=== PATIENT | female | born 1955 | race Caucasian/White ===

== ENCOUNTER → 2021-05-22 | Outpatient (CLI) | payer MEDICARE ==
--- NOTE | 2021-05-22 11:32 | XR ---
EXAMINATION TYPE: XR shoulder complete RT, 3 views DATE OF EXAM: 05/22/2021 Comparison: None Clinical History: 65-year-old female M25.511 R shoulder pain Findings: There is moderate degenerative change of the acromion clavicular joint. Prominent marginal spurring. Some inferior spurring encroaches onto the subacromial space. Some synovial calcifications are noted. There are loose bodies in the subcoracoid recess measuring 8 mm and in the axillary recess measuring 2.0 x 1.1 cm. There is severe degenerative change of the left humeral joint with [id number] abutme nt, subchondral sclerosis, and marginal spurring. No acute fracture, subluxation, or dislocation. Impression: 1. Severe, [id number] right glenohumeral joint OA with a couple loose bodies measuring up to 2.0 cm . 2. Moderate AC joint OA. Inferior spurring encroaches onto the subacromial space.
== END | disposition home or self-care (01) ==
LOC: RADXRMAIN 10:41
PROVIDERS: ATTEND Internal Medicine
DX: M19.011 Primary osteoarthritis, right shoulder (principal)

== ENCOUNTER → 2022-03-26 | Outpatient (CLI) | payer MEDICARE ==
[2022-03-26 16:05] LABS: Appearance,Urine Clear (Clear); Bilirubin,Urine Negative (Negative); Blood,Urine Negative (Negative); Color,Urine Yellow; Glucose,Urine (UA) Negative (Negative); Ketones,Urine Negative (Negative); Leukocyte Esterase,Urine Negative (Negative); Nitrite,Urine Negative (Negative); Protein,Urine Negative (Negative); Urobilinogen,Urine <2.0 mg/dL (<2.0)
[2022-03-26 17:25] LABS: INR 0.9 (<1.2)
[2022-03-26 17:26] LABS: Partial Thromboplastin Time 23.2 sec (22.0-30.0); Prothrombin Time 10.1 sec (9.0-12.0)
[2022-03-26 22:30] LABS: HCT 40.7 % (37.2-46.3); HGB 12.9 g/dL (12.0-15.0); MCH 29.2 pg (27.0-32.0); MCHC 31.7 g/dL (32.0-37.0); MCV 92.1 fL (80.0-97.0); Mean Platelet Volume 10.5 fL (9.5-12.2); NRBC Per 100 WBC 0 /100 WBCS (0.0-0.0); Platelet Count 347 X 10*3/uL (140-440); RBC 4.42 X 10*6/uL (4.10-5.20); RDW 13.5 % (11.5-14.5); WBC 12.09 X 10*3/uL (4.50-10.00)
[2022-03-26 22:52] LABS: African American GFR (CKD) 99.1 (60.0-200.0); Albumin 4.2 g/dL (3.8-4.9); Albumin/Globulin Ratio 1.42 (1.60-3.17); Anion Gap 14.3 mmol/L (10.00-18.00); BUN/Creat Ratio 15.38 Ratio (12.00-20.00); Blood Urea Nitrogen 11.2 mg/dL (9.0-27.0); Calcium 10.1 mg/dL (8.7-10.3); Carbon Dioxide 22.8 mmol/L (20.0-27.5); Non-African American GFR(CKD) 85.5 (60.0-200.0); Potassium 4.4 mmol/L (3.5-5.5); Total Bilirubin 0.3 mg/dL (0.30-1.20); Total Protein 7.2 g/dL (6.2-8.2)
== END | disposition home or self-care (01) ==
LOC: LABPAT 14:38
PROVIDERS: ATTEND Orthopaedic Surgery
DX: Z01.812 Encounter for preprocedural laboratory examination (principal); M19.011 Primary osteoarthritis, right shoulder
CPT/HCPCS: 80053; 81003; 85027; 85610; 85730; 87070

== ENCOUNTER 2022-04-14 08:58 | Day surgery (SDC) | payer MEDICARE ==
[2022-04-07 12:57] VITALS: BMI 33.6
[~2022-04-14 08:58] MED LIST: ACETAMINOPHEN TAB 500 MG TAB PO PRN; GABAPENTIN 300 MG CAP PO PRN; MELOXICAM 7.5 MG TAB PO PRN; TRANEXAMIC ACID IN NACL,ISO-OS 1,000 MG in SALINE 1 100ML.BAG IVPB PRN
[2022-04-14] MEDS ORDERED: LACTATED RINGERS 1,000 ML IV ONE ×3 (09:47→14:40)
[2022-04-14] MEDS ORDERED: ONDANSETRON 4 MG/2 ML VIAL ONE (10:18)
[2022-04-14] MEDS ORDERED: ONDANSETRON 4 MG/2 ML VIAL IVP ONE (10:24)
[2022-04-14] MEDS ORDERED: DEXAMETHASONE SOD PHOSPHATE 4 MG/ML 1 ML VIAL IVP ONE (10:24)
[2022-04-14] MEDS ORDERED: fentaNYL (PF) 50 MCG/1 ML VIAL IVP ONE (10:37)
[2022-04-14] MEDS ORDERED: MIDAZOLAM 2 MG/2 ML VIAL IVP ONE (10:37)
[2022-04-14] MEDS ORDERED: hydrOXYzine pamoate 25 MG CAP PO PRN (11:12)
[2022-04-14] MEDS ORDERED: ONDANSETRON 4 MG/2 ML VIAL IVP PRN (11:12)
[2022-04-14] MEDS ORDERED: SENNOSIDES-DOCUSATE SODIUM 1 EACH TAB PO PRN (11:12)
[2022-04-14] MEDS ORDERED: HYDROmorphone 0.5 MG/0.5 ML SYRINGE IVP PRN ×2 (11:12)
[2022-04-14] MEDS ORDERED: HYDROcodone/APAP 7.5-325MG 1 EACH TAB PO PRN ×2 (11:16)
[2022-04-14] MEDS ORDERED: ePHEDrine 50 MG/ML 1 ML VIAL ONE (11:22)
[2022-04-14] MEDS ORDERED: LIDOCAINE 2% INJ 20 MG/ML (2 ML VIAL) ONE (11:22)
[2022-04-14] MEDS ORDERED: ROPIVACAINE 5 MG/ML 30 ML VIAL ONE (11:22)
[2022-04-14] MEDS ORDERED: fentaNYL (PF) 50 MCG/ML 2 ML AMP ONE (11:22)
[2022-04-14] MEDS ORDERED: TRANEXAMIC ACID IN NACL,ISO-OS 1,000 MG/100 ML BAG ONE (11:22)
[2022-04-14] MEDS ORDERED: SUCCINYLCHOLINE CHLORIDE 200 MG/10 ML VIAL IV ONE (11:22)
[2022-04-14] MEDS ORDERED: LIDOCAINE 4% LTA KIT (4 ML) TOPICAL ONE (11:22)
[2022-04-14] MEDS ORDERED: PROPOFOL 10 MG/ML 20 ML VIAL IV ONE (11:22)
[2022-04-14] MEDS ORDERED: MIDAZOLAM 2 MG/2 ML VIAL ONE (11:22)
[2022-04-14] MEDS ORDERED: ROCURONIUM 10 MG/ML (5 ML VIAL) IV ONE (11:22)
[2022-04-14] MEDS ORDERED: NEOSTIGMINE 1 MG/ML 10 ML VIAL ONE (11:22)
[2022-04-14] MEDS ORDERED: GLYCOPYRROLATE 0.2 MG/ML 2 ML VIAL ONE (11:22)
[2022-04-14] MEDS ORDERED: ceFAZolin 1,000 MG in SODIUM CHLORIDE 0.9% 1,000 ML IRRIGATION ONE (11:40)
--- NOTE | 2022-04-14 11:58 | P.ANPRN ---
Procedure Note - Anesthesia - Nerve Block Performed Right Interscalene Single Time Out Performed: Yes (1036) Date of Procedure: 04/14/22 Procedure Start Time: 10:37 Procedure Stop Time: 10:43 Location of Patient: PreOp Indication: Acute Post-Operative Pain, Requested by Surgeon Specifically requested for management of pain by DrSrikanth: Chau Hauser Sedation Type: Sedate with meaningful contact maintained Preparation: Sterile Prep Position: Supine Catheter: None Needle Types: Pajunk Needle Gauge: 21 Ultrasound used to visualize needle placement: Yes Ultrasound used to observe medication spread: Yes Injectate: 0.5% Ropivacaine (see comment for volume) (30cc) Blood Aspirated: No Pain Paresthesia on Injection Noted: No Resistance on Injection: Normal Image Stored and Saved: Yes Events: Uneventful and Well Tolerated
--- NOTE | 2022-04-14 12:41 | P.OP ---
Date of Procedure: 04/14/22 Preoperative Diagnosis: Severe osteoarthritis right shoulder with chronic rotator cuff tear Postoperative Diagnosis: Severe osteoarthritis right shoulder with chronic rotator cuff tear Procedure(s) Performed: Reverse total shoulder arthroplasty right shoulder Implants: Biomet comprehensive shoulder system, mini humeral stem, 13 mm porous-coated. Biomet comprehensive reverse shoulder system, humeral bearing, 36 mm, standard Biomet comprehensive reverse shoulder system, mini humeral tray, 40 mm, +0, standard Biomet comprehensive reverse shoulder, Glenosphere mini baseplate, 25 mm Biomet comprehensive reverse shoulder, central screw, 6.5 mm x 25 mm Biomet comprehensive reverse shoulder, fixed locking screw, 4.75 x 25 mm, 15 mm, 20 mm, 25 mm. Biomet comprehensive reverse shoulder glenosphere, 36 mm, standard All components were press-fit. Articulation is metal on polyethylene.Articulation is metal on polyethylene. Anesthesia: GETA Surgeon: Chau Hauser 411 Directory Assistance Operator #1: Martha Moser Estimated Blood Loss (ml): 100 Pathology: other (Humeral head) Condition: stable Disposition: PACU Indications for Procedure: This is a patient that presented to my office with severe pain in the shoulder. X-rays demonstrated severe osteoarthritis of the glenohumeral joint of her shoulder. After failure of conservative treatment, we discussed the surgical and nonsurgical treatment options at length. The patient wishes to proceed with a reverse total shoulder arthroplasty. Patient is aware of the complications of the procedure which include but are not limited to infection, hardware failure, persistent pain, dislocation, and nerve injury. Informed consent was obtained. Operative Findings: The operative findings are consistent with severe osteoarthritis of the right shoulder with chronic rotator cuff tear Description of Procedure: The patient was seen in the preoperative area, consent was reviewed, and operative site was marked with a skin marker. Patient was then brought to the operating room and given preoperative antibiotics intravenously. Patient was also given 1 g of Tranexamic acid intravenously. A general anesthetic was administered by the anesthesia department. A Hirsch catheter was placed by the nursing staff. The patient was then placed in a beachchair position with the bony prominences well-padded and the head secured. The shoulder was then prepped and draped in the usual sterile fashion. A universal timeout was then performed, which confirmed the patient's name, surgical site, ALLERGIES, and consent. A standard deltopectoral approach was performed. The skin and subcutaneous tissue was sharply dissected down to the deltoid fascia. The cephalic vein was then identified and retracted medially. The deltopectoral interval was then utilized to expose the subscapularis tendon. A retractor was then placed under the coracobrachialis tendon retracted medially, and the deltoid. The axillary nerve is palpated and protected throughout the procedure. The subscapularis tendon was then released and retracted medially. The humeral head was then exposed easily. The rotator cuff tendon was found to be completely torn and retracted. After the humeral head was exposed, osteophytes were removed with a Ronguer. Next the humeral stem was prepared. A starter reamer was then placed through the humeral head along the axis of the humeral shaft just lateral to the articular surface and just medial to the rotator cuff attachment. Sequential reaming was performed to the appropriate size reamer was inserted to the #b etween the 3 and 4 on the reamer. Next the intramedullary resection guide was placed on the reamer shaft. It was placed to the appropriate resection depth and angle of 30 of retroversion. Resection guide block was then secured with Steinmann pins. The proximal humerus was then resected. The block was then removed and the humerus was then broached sequentially to the same size as the reamer. After the broaches fully seated, the broach handle was removed and a broach cover was placed protect the humerus while the glenoid was prepared. Next attention was directed to the glenoid. The appropriate retractors were placed around the glenoid and any remaining soft tissues was removed from around the glenoid. After the glenoid was adequately exposed, the threaded glenoid guide was placed onto the glenoid and a 3.2 mm Steinmann pin was inserted in the glenoid at the desired angle and position, ensuring the pin engaged medial cortical wall. Next, the cannulated baseplate reamer was placed over the top of the Steinmann pin. The glenoid was then reamed to the appropriate depth. The glenoid reamer was then removed, leaving the Steinmann pin. The glenoid Kaushal plate implant was placed on the end of the cannulated baseplate impactor. The baseplate was then impacted fully into the glenoid. Next the 6.5 mm central screw was then placed which afforded excellent fixation. The 4 peripheral locking screws were then drilled measured and placed. Next the appropriate glenosphere was opened and impacted into the glenoid baseplate. Attention was then redirected to the humerus. Next a trial humeral tray was placed in the shoulder was reduced. Shoulder was taken through a full range of motion and found to be stable. The shoulder was then gently dislocated, and the trial humerus and humeral tray were removed. The final humeral stem was impacted in the final humeral tray was impacted as well. Shoulder was then relocated. Again the shoulder was taken through a range of motion and found to have no instability. Shoulder was then irrigated with pulsatile lavage. The shoulder was then irrigated with Irrisept solution. A second dose of 1 g of Tranexamic acid was given. The subscapularis was then repaired with #1 Vicryl. The deltopectoral interval was then closed with #1 Vicryl as well. The subcutaneous tissues were closed with 3-0 Vicryl then 3-0 Stratafix. Exofin skin glue was placed on the skin. A sterile dressing was then applied, the patient was transported to the recovery room in an arm sling in stable condition. The cardiology physician assistant DORON Acuna was required due the complexity of surgery and the need for a skilled surgical consultant.
[2022-04-14] MEDS ORDERED: HYDROmorphone 0.5 MG/0.5 ML SYRINGE IVP ONE (14:12)
--- NOTE | 2022-04-14 15:08 | XR ---
EXAMINATION TYPE: XR shoulder limited RT DATE OF EXAM: 04/14/2022 CLINICAL HISTORY: Postop right shoulder. Pain and osteoarthritis. TECHNIQUE: Single portable view right shoulder is obtained. COMPARISON: Prior right shoulder x-ray May 22, 2021. FINDINGS: Metallic hardware from reversed total right shoulder arthroplasty is satisfactory in positi on. [place] osseous structures are demineralized. Overlying subcutaneous air and soft tissue swelling is noted. IMPRESSION: As above.
[2022-04-14] MEDS: SODIUM CHLORIDE 0.9% 1,000 ML IV SCH (15:24)
[2022-04-14] MEDS: HYDROmorphone 0.5 MG/0.5 ML SYRINGE IVP PRN ×3 (17:07→23:06)
--- NOTE | 2022-04-14 18:18 | P.CONS ---
History of Present Illness - Reason for Consult Consult date: 04/14/22 - History of Present Illness Patient is a 66-year-old female with PMH of GERD, depression and osteoarthritis that presents to [facility] for elective surgery. She underwent right total shoulder arthroplasty on 04/14/2022. She is admitted overnight for observation. [facility] is being consulted for medical management of this patient. Patient reports well controlled pain in her right shoulder. Urinating freely. No bowel movement, but passing gas. Patient denies headache, lower extremity edema, nausea or vomiting, fever or chills, cough, chest pain, shortness breath, palpitations, changes in urination or bowel habits. No changes in appetite or weight. She denies any dizziness, numbness/weakness/tingling of the extremities. Pertinent positives and negatives as discussed in HPI, a complete review of systems was performed and all other systems are negative. General: non toxic, no distress, appears at stated age Derm: warm, dry Head: atraumatic, normocephalic, symmetric Eyes: EOMI, no lid lag, anicteric sclera Mouth: no lip lesion, mucus membranes moist Cardiovascular: S1S2 reg, no murmur, positive posterior tibial pulse bilateral, Lungs: CTA bilateral, no rhonchi, no rales , no accessory muscle use Ext: no gross muscle atrophy, no edema, no contractures Neuro: no focal neuro deficits Psych: Alert, oriented, appropriate affect #GERD Restart omeprazole. #Depression Restart Prozac. #Obesity Patient would benefit from a structured weight loss program. #Status post right total shoulder arthroplasty Management as per orthopedic surgery. PT and OT consulted. DVT prophylaxis: SCDs Discussed with: Patient Anticipated discharge: 1-[address]: Home A total of 20 minutes was spent on the care of this complex patient more than 50% of the time was spent in counseling and care coordination. Past Medical History Past Medical History: GERD/Reflux, Hyperlipidemia, Osteoarthritis (OA) Additional Past Medical History / Comment(s): HX DIVERTICULITIS, PAST HX HEP C History of Any Multi-Drug Resistant Organisms: None Reported Past Surgical History: Appendectomy, Bowel Resection, Section, Joint Replacement, Tonsillectomy Additional Past Surgical History / Comment(s): BOWEL RESECTION WITH COLOSTOMY- THEN REVERSAL, COLONOSCOPY, rt shoulder replacement 04/07 Past Anesthesia/Blood Transfusion Reactions: No Reported Reaction Past Psychological History: Anxiety, Depression Smoking Status: Former smoker Past Alcohol Use History: None Reported Additional Past Alcohol Use History / Comment(s): QUIT SMOKING 2006 Past Drug Use History: Marijuana Additional Drug Use History / Comment(s): USES MARIJUANA DAILY-INSTRUCTED TO REFRAIN FROM USE FOR AT LEAST 24 HOURS PRIOR TO PROCEDURE - Past Family History Father Family Medical History: Cancer Mother Family Medical History: CVA/TIA Additional Family Medical History / Comment(s): TIA Medications and Allergies Home Medications Medication Instructions Recorded Confirmed Type FLUoxetine HCL [PROzac] 20 mg PO BID 04/13/22 04/14/22 History HYDROcodone/APAP 10-325MG [[place] 1 tab PO Q4-6H PRN 04/13/22 04/14/22 History 10-325] Multivitamin/Iron/Folic Acid 1 each PO DAILY 04/13/22 04/14/22 History [Centrum Women Tablet] Naproxen Sodium [Naproxen Sodium 500 mg PO BID 04/13/22 04/14/22 History ER] Omeprazole 20 mg PO DAILY 04/13/22 04/14/22 History hydrOXYzine HCL 10 mg PO BID 04/13/22 04/14/22 History HYDROcodone/APAP 7.5-325MG [[place] 1 - 2 tab PO Q6H PRN #32 tab 04/14/22 Rx 7.5-325] Sennosides [Senokot] 2 tab PO DAILY PRN #60 tablet 04/14/22 Rx Allergies Allergy/AdvReac Type Severity Reaction Status Date / Time acetaminophen [From Percocet] AdvReac Hallucinati Verified 04/14/22 09:43 ons codeine AdvReac Nausea & Verified 04/14/22 09:43 Vomiting oxycodone [From Percocet] AdvReac Hallucinati Verified 04/14/22 09:43 ons propoxyphene [From Darvon] AdvReac Nausea & Verified 04/14/22 09:43 Vomiting Physical Exam Vitals: Vital Signs Temp Pulse Resp BP Pulse Ox 04/14/22 16:09 98.0 F 69 17 127/75 93 L 04/14/22 15:00 79 16 131/66 98 04/14/22 14:00 69 16 132/77 97 04/14/22 13:45 71 16 135/70 97 04/14/22 13:29 68 16 132/68 98 04/14/22 13:14 67 16 143/71 98 04/14/22 12:59 97 F L 79 16 148/68 96 04/14/22 10:50 72 16 136/64 99 04/14/22 09:40 97.4 F L 73 16 151/72 97 Intake and Output 04/14/22 04/14/22 04/14/22 06:59 14:59 22:59 Intake Total 1051 240 Output Total 100 Balance 951 240 Intake: IV 1051 100 Intake, IV Titration 140 Amount Sodium Chloride 0.9% 1, 140 000 ml @ 70 mls/hr IV . [id number] [facility] Rx#:[id number] Output: Estimated Blood Loss 100 Other: Weight 88.4 kg 88.4 kg
[2022-04-14] MEDS: hydrOXYzine HCL 10 MG TAB PO SCH (20:07)
[2022-04-14] MEDS: FLUoxetine HCL 20 MG CAP PO SCH (20:08)
[2022-04-15] MEDS: HYDROmorphone 0.5 MG/0.5 ML SYRINGE IVP PRN ×3 (02:10→09:10)
[2022-04-15] MEDS: SODIUM CHLORIDE 0.9% 1,000 ML IV SCH (06:03)
[2022-04-15] MEDS ORDERED: PANTOPRAZOLE 40 MG TABLET PO SCH (07:30)
--- NOTE | 2022-04-15 07:52 | P.DS ---
Providers Expected date of discharge: 04/15/22 Attending physician: Chau Hauser Consults: 04/14/22 11:16 Consult Physician Routine Consulting Provider: Ericka Garcia Consult Reason/Comments: medical management Do you want consulting provider notified?: Yes Primary care physician: Stated None - Discharge Diagnosis(es) (1) Primary osteoarthritis of right shoulder Current Visit: Yes Status: Acute (2) Status post total replacement of right shoulder Current Visit: Yes Status: Acute Hospital Course: This is a 66-year-old female who has history of severe degenerative arthritis of the right shoulder and presented to discuss surgical options. After discussion and consideration the patient elects to proceed with total shoulder arthroplasty. The pt is seen preoperatively by their family physician and cleared for surgery. The patient is admitted to [facility] on 04/14/2022 for total right shoulder arthroplasty. She is doing well postoperatively. Vital signs and hemoglobin are stable. The pt is able to get up out of bed independently and is ambulating without assistance. Pain is well controlled. Patient is discharged to home on postoperative day #1 in good condition. Please see med rec for accurate list of home medications. Patient Condition at Discharge: Good Plan - Discharge Summary Discharge Rx Participant: Yes New Discharge Prescriptions: New HYDROcodone/APAP 7.5-325MG [[place] 7.5-325] 1 - 2 tab PO Q6H PRN #32 tab PRN Reason: Pain Sennosides [Senokot] 2 tab PO DAILY PRN #60 tablet PRN Reason: Constipation Ketorolac [Toradol] 10 mg PO Q6HR PRN #20 tab PRN Reason: Pain No Action hydrOXYzine HCL 10 mg PO BID Multivitamin/Iron/Folic Acid [Centrum Women Tablet] 1 each PO DAILY Naproxen Sodium [Naproxen Sodium ER] 500 mg PO BID FLUoxetine HCL [PROzac] 20 mg PO BID HYDROcodone/APAP 10-325MG [[place] 10-325] 1 tab PO Q4-6H PRN PRN Reason: Pain Omeprazole 20 mg PO DAILY Discharge Medication List FLUoxetine HCL [PROzac] 20 mg PO BID 04/13/22 [History] HYDROcodone/APAP 10-325MG [[place] 10-325] 1 tab PO Q4-6H PRN 04/13/22 [History] Multivitamin/Iron/Folic Acid [Centrum Women Tablet] 1 each PO DAILY 04/13/22 [History] Naproxen Sodium [Naproxen Sodium ER] 500 mg PO BID 04/13/22 [History] Omeprazole 20 mg PO DAILY 04/13/22 [History] hydrOXYzine HCL 10 mg PO BID 04/13/22 [History] HYDROcodone/APAP 7.5-325MG [[place] 7.5-325] 1 - 2 tab PO Q6H PRN #32 tab 04/14/22 [Rx] Sennosides [Senokot] 2 tab PO DAILY PRN #60 tablet 04/14/22 [Rx] Ketorolac [Toradol] 10 mg PO Q6HR PRN #20 tab 04/15/22 [Rx] Follow up Appointment(s)/Referral(s): Chau Hauser DO [Doctor of Osteopathic Medicine] - 2 Weeks Activity/Diet/Wound Care/Special Instructions: Maintain sling as needed for comfort. Dressing may be removed in 7 days. Then change dressing twice daily until follow up. May shower with initial dressing intact and after removal. If dressing become saturated, please remove. Avoid heavy lifting. May start gentle range of motion of the shoulder as tolerated. Please follow-up with [facility] and call with any questions or concerns, . Discharge Disposition: HOME SELF-CARE
[2022-04-15] MEDS: FLUoxetine HCL 20 MG CAP PO SCH (09:11)
[2022-04-15] MEDS: hydrOXYzine HCL 10 MG TAB PO SCH (09:11)
[2022-04-15 09:34] VITALS: BP 114/69; PULSE 93; RESP 17; TEMP 98.5
[2022-04-15] MEDS ORDERED: KETOROLAC 15 MG/ML 1 ML VIAL IVP STA (10:58)
--- NOTE | 2022-04-15 14:32 | P.PN ---
Subjective Progress Note Date: 04/15/22 Patient was seen and examined. No acute events overnight. Patient reports right shoulder pain, 6/10 in severity. States she can manage the pain at home. General: non toxic, no distress, appears at stated age Derm: warm, dry Head: atraumatic, normocephalic, symmetric Eyes: EOMI, no lid lag, anicteric sclera Mouth: no lip lesion, mucus membranes moist Cardiovascular: S1S2 reg, no murmur Lungs: CTA bilateral, no rhonchi, no rales , no accessory muscle use Ext: no gross muscle atrophy, no edema, no contractures, R arm in a sling Neuro: no focal neuro deficits Psych: Alert, oriented, appropriate affect #GERD Restart omeprazole. #Depression Restart Prozac. #Obesity Patient would benefit from a structured weight loss program. #Status post right total shoulder arthroplasty Management as per orthopedic surgery. PT and OT consulted. Patient is medically cleared for discharge. Objective - Vital Signs Vital signs: Vital Signs Temp 98.5 F 04/15/22 08:00 Pulse 93 04/15/22 08:00 Resp 17 04/15/22 08:00 BP 114/69 04/15/22 08:00 Pulse Ox 94 L 04/15/22 08:00 FiO2 Intake & Output 04/14/22 04/15/22 04/15/22 18:59 06:59 18:59 Intake Total 1291 Output Total 100 Balance 1191 Weight 88.4 kg Intake: IV 1151 Intake, IV Titration 140 Amount Sodium Chloride 0.9% 1, 140 000 ml @ 70 mls/hr IV . [id number] [facility] Rx#:[id number] Output: Estimated Blood Loss 100 Other: # Voids 2
== END 2022-04-15 12:38 | disposition home or self-care (01) ==
LOC: OR 08:58 → 4SSUR 12:59 → OR 04-15 12:38
PROVIDERS: ATTEND Orthopaedic Surgery
DX: M75.101 Unspecified rotator cuff tear or rupture of right shoulder, not specified as traumatic (principal); M19.011 Primary osteoarthritis, right shoulder; G89.18 Other acute postprocedural pain; E78.5 Hyperlipidemia, unspecified; F32.A Depression, unspecified; Z97.3 Presence of spectacles and contact lenses; Z82.49 Family history of ischemic heart disease and other diseases of the circulatory system
CPT/HCPCS: 64415; 76942; 73020; 23472; C1776; J2250; J0330; J1100; J2710; J0690 ×3; J2405; J3010 ×2; J2795; J1885; J2704; J1170 ×2; J2001

== ENCOUNTER → 2022-08-18 | Outpatient (CLI) | payer MEDICARE, OTHER ==
[2022-08-18 15:20] LABS: Partial Thromboplastin Time 22.6 sec (22.0-30.0)
[2022-08-18 16:01] LABS: HCT 42.6 % (34.0-46.0); HGB 14.2 gm/dL (11.4-16.0); MCH 29.2 pg (25.0-35.0); MCHC 33.3 g/dL (31.0-37.0); MCV 87.6 fL (80.0-100.0); Mean Platelet Volume 8.3; Platelet Count 321 k/uL (150-450); RBC 4.87 m/uL (3.80-5.40); WBC 10.3 k/uL (3.8-10.6)
[2022-08-18 19:50] LABS: African American GFR (CKD) 88.4 (60.0-200.0); Albumin 4.3 g/dL (3.8-4.9); Albumin/Globulin Ratio 1.34 (1.60-3.17); Anion Gap 10.7 mmol/L (10.00-18.00); Blood Urea Nitrogen 18.4 mg/dL (9.0-27.0); Calcium 10.2 mg/dL (8.7-10.3); Carbon Dioxide 24.3 mmol/L (20.0-27.5); Globulin 3.2 g/dL (1.6-3.3); Non-African American GFR(CKD) 76.3 (60.0-200.0); Potassium 4.7 mmol/L (3.5-5.5); Total Bilirubin 0.3 mg/dL (0.30-1.20); Total Protein 7.5 g/dL (6.2-8.2)
[2022-08-18 22:24] LABS: INR 0.9 (<1.2); Prothrombin Time 10.2 sec (9.0-12.0)
== END | disposition home or self-care (01) ==
LOC: LABPAT 14:18
PROVIDERS: ATTEND Orthopaedic Surgery
DX: Z01.818 Encounter for other preprocedural examination (principal); M19.012 Primary osteoarthritis, left shoulder
CPT/HCPCS: 80053; 85027; 85610; 85730; 87070; 87086

== ENCOUNTER 2022-08-31 07:09 | Observation (INO) | payer MEDICARE, OTHER ==
[2022-08-25 10:38] VITALS: BMI 34.3
[2022-08-31] MEDS ORDERED: MIDAZOLAM 2 MG/2 ML VIAL IV PRN (07:29)
[2022-08-31] MEDS ORDERED: DEXAMETHASONE SOD PHOSPHATE 4 MG/ML 1 ML VIAL IV ONE (07:29)
[2022-08-31] MEDS ORDERED: ONDANSETRON 4 MG/2 ML VIAL IVP ONE (07:29)
[2022-08-31] MEDS: LACTATED RINGERS 1,000 ML IV SCH (08:25)
[2022-08-31] MEDS: fentaNYL (PF) 50 MCG/ML 2 ML AMP IV PRN ×2 (08:34→11:00)
[2022-08-31] MEDS ORDERED: SENNOSIDES-DOCUSATE SODIUM 1 EACH TAB PO PRN (08:52)
[2022-08-31] MEDS ORDERED: ONDANSETRON 4 MG/2 ML VIAL IVP PRN (08:52)
[2022-08-31] MEDS ORDERED: HYDROmorphone 0.5 MG/0.5 ML SYRINGE IVP PRN ×2 (08:52)
[2022-08-31] MEDS ORDERED: HYDROcodone/APAP 7.5-325MG 1 EACH TAB PO PRN ×2 (08:55)
[2022-08-31] MEDS ORDERED: TRANEXAMIC ACID IN NACL,ISO-OS 1,000 MG/100 ML BAG ONE (09:04)
[2022-08-31] MEDS ORDERED: SUCCINYLCHOLINE CHLORIDE 200 MG/10 ML VIAL IV ONE (09:04)
[2022-08-31] MEDS ORDERED: LIDOCAINE 2% INJ 20 MG/ML (2 ML VIAL) ONE (09:04)
[2022-08-31] MEDS ORDERED: PROPOFOL 10 MG/ML 20 ML VIAL IV ONE (09:04)
[2022-08-31] MEDS ORDERED: LIDOCAINE 4% LTA KIT (4 ML) TOPICAL ONE (09:04)
[2022-08-31] MEDS ORDERED: MIDAZOLAM 2 MG/2 ML VIAL ONE (09:04)
[2022-08-31] MEDS ORDERED: fentaNYL (PF) 50 MCG/ML 2 ML AMP ONE (09:04)
[2022-08-31] MEDS ORDERED: HYDROmorphone (PF) 1 MG/ML ONE (09:04)
[2022-08-31] MEDS ORDERED: PHENYLEPHRINE-0.9% NACL SYG 1,000 MCG/10 ML SYRINGE ONE (09:04)
[2022-08-31] MEDS ORDERED: ROPIVACAINE 5 MG/ML 30 ML VIAL ONE (09:04)
[2022-08-31] MEDS ORDERED: ceFAZolin 1,000 MG in SODIUM CHLORIDE 0.9% 1,000 ML IRRIGATION ONE (09:08)
--- NOTE | 2022-08-31 09:45 | P.ANPRN ---
Procedure Note - Anesthesia - Nerve Block Performed Left Interscalene Single Time Out Performed: Yes (0833) Date of Procedure: 08/31/22 Procedure Start Time: 08:34 Procedure Stop Time: 08:38 Location of Patient: PreOp Indication: Acute Post-Operative Pain, Requested by Surgeon Specifically requested for management of pain by DrSrikanth: Chau Hauser Sedation Type: Sedate with meaningful contact maintained Preparation: Sterile Prep Position: Supine Catheter: None Needle Types: Pajunk Needle Gauge: 21 Ultrasound used to visualize needle placement: Yes Ultrasound used to observe medication spread: Yes Injectate: 0.5% Ropivacaine (see comment for volume) (30cc) Blood Aspirated: No Pain Paresthesia on Injection Noted: No Resistance on Injection: Normal Image Stored and Saved: Yes Events: Uneventful and Well Tolerated
[2022-08-31] MEDS ORDERED: LACTATED RINGERS 1,000 ML IV ONE (10:17)
--- NOTE | 2022-08-31 10:18 | P.OP ---
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 Biomet comprehensive reverse shoulder system, humeral bearing, 36 mm, standard Biomet comprehensive reverse shoulder system, mini humeral tray, 40 mm, +0, standard Biomet comprehensive reverse shoulder, Glenosphere mini baseplate, 25 mm Biomet comprehensive reverse shoulder, central screw, 6.5 mm x 30 mm Biomet comprehensive reverse shoulder, fixed locking screw, 4.75 x 20 mm, 15 mm, 15 mm, 20 mm. Biomet comprehensive reverse shoulder glenosphere, 36 mm, standard All components were press-fit. Articulation is metal on polyethylene.Articulation is metal on polyethylene. Anesthesia: GETA Surgeon: Chau Hauser Alarm Signaler #1: Martha Moser Estimated Blood Loss (ml): 200 Pathology: other (Humeral head) Condition: stable Disposition: PACU Indications for Procedure: This is a patient that presented to my office with severe pain in the shoulder. X-rays demonstrated severe osteoarthritis of the glenohumeral joint of her shoulder. After failure of conservative treatment, we discussed the surgical and nonsurgical treatment options at length. The patient wishes to proceed with a reverse total shoulder arthroplasty. Patient is aware of the complications of the procedure which include but are not limited to infection, hardware failure, persistent pain, dislocation, and nerve injury. Informed consent was obtained. Operative Findings: Operative findings are consistent with severe osteoarthritis of the left shoulder with chronic rotator cuff tear Description of Procedure: The patient was seen in the preoperative area, consent was reviewed, and operative site was marked with a skin marker. Patient was then brought to the operating room and given preoperative antibiotics intravenously. Patient was also given 1 g of Tranexamic acid intravenously. A general anesthetic was administered by the anesthesia department. The patient was then placed in a beach chair position with the bony prominences well-padded and the head secured. The shoulder was then prepped and draped in the usual sterile fashion. A universal timeout was then performed, which confirmed the patient's name, surgical site, ALLERGIES, and consent. A standard deltopectoral approach was performed. The skin and subcutaneous tissue was sharply dissected down to the deltoid fascia. The cephalic vein was then identified and retracted medially. The deltopectoral interval was then utilized to expose the subscapularis tendon. A retractor was then placed under the coracobrachialis tendon retracted medially, and the deltoid. The axillary nerve is palpated and protected throughout the procedure. The subscapularis tendon was then released and retracted medially. The humeral head was then exposed easily. The rotator cuff tendon was found to be completely torn and retracted. After the humeral head was exposed, osteophytes were removed with a Ronguer. Next the humeral stem was prepared. A starter reamer was then placed through the humeral head along the axis of the humeral shaft just lateral to the articular surface and just medial to the rotator cuff attachment. Sequential reaming was performed to the appropriate size reamer was inserted to the #between the 3 and 4 on the reamer. Next the intramedullary resection guide was placed on the reamer shaft. It was placed to the appropriate resection depth and angle of 30 of retroversion. Resection guide block was then secured with Steinmann pins. The proximal humerus was then resected. The block was then removed and the humerus was then broached sequentially to the same size as the reamer. After the broaches fully seated, the broach handle was removed and a broach cover was placed protect the humerus while the glenoid was prepared. Next attention was directed to the glenoid. The appropriate retractors were placed around the glenoid and any remaining soft tissues was removed from around the glenoid. After the glenoid was adequately exposed, the threaded glenoid guide was placed onto the glenoid and a 3.2 mm Steinmann pin was inserted in the glenoid at the desired angle and position, ensuring the pin engaged medial cortical wall. Next, the cannulated baseplate reamer was placed over the top of the Steinmann pin. The glenoid was then reamed to the appropriate depth. The glenoid reamer was then removed, leaving the Steinmann pin. The glenoid Kaushal plate implant was placed on the end of the cannulated baseplate impactor. The baseplate was then impacted fully into the glenoid. Next the 6.5 mm central screw was then placed which afforded excellent fixation. The 4 peripheral locking screws were then drilled measured and placed. Next the appropriate glenosphere was opened and impacted into the glenoid baseplate. Attention was then redirected to the humerus. Next a trial humeral tray was placed in the shoulder was reduced. Shoulder was taken through a full range of motion and found to be stable. The shoulder was then gently dislocated, and the trial humerus and humeral tray were removed. The final humeral stem was impacted in the final humeral tray was impacted as well. Shoulder was then relocated. Again the shoulder was taken through a range of motion and found to have no instability. Shoulder was then irrigated with pulsatile lavage. The shoulder was then irrigated with Irrisept solution. A second dose of 1 g of Tranexamic acid was given. The subscapularis was then repaired with #1 Vicryl. The deltopectoral interval was then closed with #1 Vicryl as well. The subcutaneous tissues were closed with 3-0 Vicryl then 3-0 stratafix. Exofin glue was placed on the skin. A sterile dressing was then applied, the patient was transported to the recovery room in an arm sling in stable condition. The operator/assistant foreman DORON Acuna was required due the complexity of surgery and the need for a skilled appeals assistant.
[2022-08-31] MEDS ORDERED: HYDROmorphone 0.5 MG/0.5 ML SYRINGE IVP ONE (10:59)
[2022-08-31] MEDS: HYDROmorphone 0.5 MG/0.5 ML SYRINGE IVP PRN ×3 (12:45→20:08)
[2022-08-31] MEDS: BENZOCAINE/MENTHOL LOZENG 1 EACH LOZENGE MUCOUS MEM PRN ×2 (15:07→20:27)
--- NOTE | 2022-08-31 15:08 | XR ---
EXAMINATION TYPE: XR shoulder limited LT DATE OF EXAM: 08/31/2022 COMPARISON: NONE HISTORY: Postop left shoulder TECHNIQUE: Single portable view of the left shoulder is obtained. FINDINGS: Glenohumeral prosthesis is in place and well seated. Normal postoperative alignment. Increa sed density left lung base could reflect discoid atelectasis. Correlate with chest radiograph. IMPRESSION: As above
--- NOTE | 2022-08-31 19:10 | P.CONS ---
History of Present Illness - Reason for Consult Consult date: 08/31/22 Medical Management Requesting physician: Chau Hauser - History of Present Illness History of Presenting Illness: Patient is a very pleasant 66-year-old female with a past medical history of anxiety, depression, fibromyalgia, hyperlipidemia, GERD, and osteoarthritis. Patient is currently admitted under orthopedic surgery team status post elective reverse total Left shoulder arthroplasty secondary to severe osteoarthritis of left shoulder with chronic rotator cuff tear. We have been consulted for medical management throughout patient's hospitalization. Patient seen and fully evaluated at bedside. Patient reports currently experiencing mild to moderate postoperative pain. She denies having any other complaints including headache, lightheadedness, dizziness, chest pain, palpitations, shortness of breath, cough or congestion, nausea or vomiting, or experiencing any focal numbness in her extremities. Left arm in sling, movement and sensation intact. Review of systems: Pertinent positives and negatives as discussed in HPI, a complete review of systems was performed and all other systems are negative. Physical exam: Vital signs reviewed and stable. General: Nontoxic, no distress and appears stated age. Derm: Skin warm and dry, normal coloration for ethnicity. Head: Atraumatic, normocephalic and symmetric. Eyes: EOMs intact, no lid lag, and anicteric sclera Mouth: no lip lesions, mucus membranes moist Cardiovascular: regular rate and rhythm with normal S1S2, no murmur, positive posterior tibial pulses bilaterally, and cap refill < 2 seconds. Lungs: Respirations even, regular, and unlabored on room air. Lungs CTA bilaterally, no rhonchi, no rales, no wheezing, and no accessory muscle usage. Abdominal: soft, nontender to palpation, no guarding, no appreciable organomegaly Ext: Movement and sensation intact. No gross muscle atrophy, no edema, no contractures. Neuro: Speech clear, face symmetrical and CN II-XII grossly intact with no noted focal neuro deficits Psych: Alert and oriented to person, place, time, and situation. Appropriate and pleasant affect. Assessment and Plan of Care: Status post left total shoulder arthroplasty -DVT prophylaxis, pain management, and PT/OT per primary admitting orthopedic surgery team. Anxiety and depression Continue daily medication regimen with fluoxetine 20 mg twice daily and hydroxy zine 10 mg twice daily. GERD Continue daily medication regimen with omeprazole 20 mg daily. Thank you for allowing us to participate in the care of this pleasant patient. Do not hesitate to contact us with questions. Someone can be reached from the [facility] hospitalist group all hours of the day at [phone] or via perfect serve. Patient was seen independently by Nurse Practitioner. This document was prepared using [employer] dictation software. Please allow for errors in career placement services counselor while rare they do occur. Past Medical History Past Medical History: Fibromyalgia, GERD/Reflux, Hyperlipidemia, Liver Disease, Osteoarthritis (OA) Additional Past Medical History / Comment(s): HX DIVERTICULITIS, PAST HX HEPATITIS C. History of Any Multi-Drug Resistant Organisms: None Reported Past Surgical History: Appendectomy, Bowel Resection, Section, Joint Replacement, Tonsillectomy Additional Past Surgical History / Comment(s): BOWEL RESECTION WITH COLOSTOMY- THEN REVERSAL, COLONOSCOPY, right shoulder replacement 04/07. Past Anesthesia/Blood Transfusion Reactions: No Reported Reaction Past Psychological History: Anxiety, Depression Smoking Status: Former smoker Past Alcohol Use History: None Reported Additional Past Alcohol Use History / Comment(s): QUIT SMOKING IN 2006. Past Drug Use History: Marijuana Additional Drug Use History / Comment(s): USES MARIJUANA DAILY-INSTRUCTED TO REFRAIN FROM USE FOR AT LEAST 24 HOURS PRIOR TO PROCEDURE. - Past Family History Father Family Medical History: Cancer Mother Family Medical History: CVA/TIA Additional Family Medical History / Comment(s): TIA. Medications and Allergies Home Medications Medication Instructions Recorded Confirmed Type FLUoxetine HCL [PROzac] 20 mg PO BID 04/13/22 08/25/22 History Multivitamin/Iron/Folic Acid 1 each PO DAILY 04/13/22 08/25/22 History [Centrum Women Tablet] Omeprazole 20 mg PO DAILY 04/13/22 08/25/22 History hydrOXYzine HCL 10 mg PO BID 04/13/22 08/25/22 History HYDROcodone/APAP 10-325MG [[place] 1 tab PO Q4-6H PRN 08/25/22 08/25/22 History 10-325] Sennosides [Senokot] 2 tab PO DAILY PRN #60 tablet 08/31/22 Rx Allergies Allergy/AdvReac Type Severity Reaction Status Date / Time acetaminophen [From Percocet] AdvReac Hallucinati Verified 08/31/22 07:39 ons codeine AdvReac Nausea & Verified 08/31/22 07:39 Vomiting oxycodone [From Percocet] AdvReac Hallucinati Verified 08/31/22 07:39 ons propoxyphene [From Darvon] AdvReac Nausea & Verified 08/31/22 07:39 Vomiting Physical Exam Vitals: Vital Signs Temp Pulse Pulse Resp BP Pulse Ox 08/31/22 13:48 97.6 F 77 17 116/66 95 08/31/22 11:48 97.4 F L 74 16 136/67 99 08/31/22 11:26 69 16 130/66 95 08/31/22 11:05 64 16 131/60 97 08/31/22 10:50 65 16 103/56 100 08/31/22 10:35 97.1 F L 77 16 125/64 97 08/31/22 08:39 71 16 130/69 99 08/31/22 08:30 63 16 132/67 98 08/31/22 07:56 96.8 F L 67 16 133/60 96 Intake and Output 08/30/22 08/31/22 08/31/22 22:59 06:59 14:59 Intake Total 2301 Output Total 200 Balance 2101 Intake: IV 2301 Output: Estimated Blood Loss 200 Other: Weight 87.8 kg
[2022-08-31] MEDS: FLUoxetine HCL 20 MG CAP PO SCH (19:56)
[2022-08-31] MEDS: hydrOXYzine HCL 10 MG TAB PO SCH (20:08)
[2022-09-01] MEDS: SODIUM CHLORIDE 0.9% 1,000 ML IV SCH ×3 (00:33→08:32)
[2022-09-01] MEDS: HYDROmorphone 0.5 MG/0.5 ML SYRINGE IVP PRN ×3 (00:36→08:32)
[2022-09-01] MEDS: BENZOCAINE/MENTHOL LOZENG 1 EACH LOZENGE MUCOUS MEM PRN ×3 (00:36→08:32)
[2022-09-01 07:26] VITALS: BP 125/76; PULSE 75; TEMP 98
[2022-09-01] MEDS: LACTATED RINGERS 1,000 ML IV SCH (08:29)
[2022-09-01] MEDS: hydrOXYzine HCL 10 MG TAB PO SCH (08:31)
[2022-09-01] MEDS: FLUoxetine HCL 20 MG CAP PO SCH (08:32)
[2022-09-01] MEDS ORDERED: PANTOPRAZOLE 40 MG TABLET PO SCH (09:00)
[2022-09-01 09:46] VITALS: RESP 16
--- NOTE | 2022-09-01 11:18 | P.DS ---
Providers Date of admission: 08/31/22 08:52 Expected date of discharge: 09/01/22 Attending physician: Chau Hauser Consults: 08/31/22 08:52 Consult Physician Routine Consulting Provider: Ericka Garcia Consult Reason/Comments: medical management Do you want consulting provider notified?: Yes Primary care physician: Oscar Horn MD - Discharge Diagnosis(es) (1) Status post reverse total replacement of left shoulder Current Visit: Yes Status: Acute (2) Osteoarthritis of left shoulder Current Visit: Yes Status: Acute Hospital Course: This is a 66-year-old female with known history of severe osteoarthritis of the left shoulder and chronic rotator cuff tear. The patient presented for evaluation as an outpatient. After discussion and consideration patient elects to proceed with reverse total shoulder arthroplasty. The patient is seen preoperatively by Dr. Hauser and medically cleared for surgery by their primary care physician. Patient is admitted to [facility] on 08/31/2022 for reverse total shoulder arthroplasty. The procedure is performed without complication or sequelae. The patient is doing well postoperatively. Labs and vital signs are stable on day of discharge. On day of discharge the patient's shoulder incision is healing well. There is minimal erythema. There is no drainage noted at this time. There is minimal soft tissue swelling to the shoulder. Patient has full hand and wrist motion without difficulty or pain. Neurovascular status to the left upper extremity is intact. Patient is discharged home in good condition. Please see med rec for accurate list of home medications. Plan - Discharge Summary Discharge Rx Participant: Yes New Discharge Prescriptions: New Sennosides [Senokot] 2 tab PO DAILY PRN #60 tablet PRN Reason: Constipation Gabapentin 300 mg PO BID 5 Days #10 cap No Action hydrOXYzine HCL 10 mg PO BID Multivitamin/Iron/Folic Acid [Centrum Women Tablet] 1 each PO DAILY FLUoxetine HCL [PROzac] 20 mg PO BID Omeprazole 20 mg PO DAILY HYDROcodone/APAP 10-325MG [[place] 10-325] 1 tab PO Q4-6H PRN PRN Reason: Pain Discharge Medication List FLUoxetine HCL [PROzac] 20 mg PO BID 04/13/22 [History] Multivitamin/Iron/Folic Acid [Centrum Women Tablet] 1 each PO DAILY 04/13/22 [History] Omeprazole 20 mg PO DAILY 04/13/22 [History] hydrOXYzine HCL 10 mg PO BID 04/13/22 [History] HYDROcodone/APAP 10-325MG [[place] 10-325] 1 tab PO Q4-6H PRN 08/25/22 [History] Sennosides [Senokot] 2 tab PO DAILY PRN #60 tablet 08/31/22 [Rx] Gabapentin 300 mg PO BID 5 Days #10 cap 09/01/22 [Rx] Follow up Appointment(s)/Referral(s): Chau Hauser DO [Doctor of Osteopathic Medicine] - 2 Weeks Activity/Diet/Wound Care/Special Instructions: Maintain sling as needed for comfort. Dressing may be removed by home care nurse or by patient in 7 days. Then change dressing twice daily until follow up. May shower with initial dressing intact and after removal. If dressing become saturated, please remove. Pain management per family physician. Please follow-up with [facility] and call with any questions or concerns, . Discharge Disposition: HOME SELF-CARE
--- NOTE | 2022-09-01 13:07 | P.PN ---
Subjective Progress Note Date: 09/01/22 History of Presenting Illness: Patient is a very pleasant 66-year-old female with a past medical history of anxiety, depression, fibromyalgia, hyperlipidemia, GERD, and osteoarthritis. Patient is currently admitted under orthopedic surgery team status post elective reverse total Left shoulder arthroplasty completed on 08/31/22 secondary to severe osteoarthritis of left shoulder with chronic rotator cuff tear. We have been consulted for medical management throughout patient's hospitalization. Physical exam: Patient seen and fully evaluated at the bedside this morning. She reports postsurgical pain has improved but continues with mild to moderate pain on current pain medication regimen. Patient denies having any other needs or concerns at this time. Medically, patient is stable for discharge once cleared by primary admitting orthopedic surgery team. Vital signs reviewed and stable. General: Nontoxic, no distress and appears stated age. Derm: Skin warm and dry, normal coloration for ethnicity. Head: Atraumatic, normocephalic and symmetric. Eyes: EOMs intact, no lid lag, and anicteric sclera Mouth: no lip lesions, mucus membranes moist Cardiovascular: regular rate and rhythm with normal S1S2, no murmur, positive posterior tibial pulses bilaterally, and cap refill < 2 seconds. Lungs: Respirations even, regular, and unlabored on room air. Lungs CTA bilaterally, no rhonchi, no rales, no wheezing, and no accessory muscle usage. Abdominal: soft, nontender to palpation, no guarding, no appreciable organomegaly Ext: Movement and sensation intact. No gross muscle atrophy, no edema, no contractures. Neuro: Speech clear, face symmetrical and CN II-XII grossly intact with no noted focal neuro deficits Psych: Alert and oriented to person, place, time, and situation. Appropriate and pleasant affect. Assessment and Plan of Care: Status post left total shoulder arthroplasty -DVT prophylaxis, pain management, and PT/OT per primary admitting orthopedic surgery team. Anxiety and depression Continue daily medication regimen with fluoxetine 20 mg twice daily and hydroxyzine 10 mg twice daily. GERD Continue daily medication regimen with omeprazole 20 mg daily. Medically, patient is stable for discharge once cleared by primary admitting orthopedic surgery team. Vital signs are unremarkable with blood pressure 125/76, heart rate 75, respiratory rate 15, and SpO2 of 96% on room air. Thank you for allowing us to participate in the care of this pleasant patient. Do not hesitate to contact us with questions. Someone can be reached from the [facility] hospitalist group all hours of the day at [phone] or via Vend. Patient was seen independently by Nurse Practitioner. This document was prepared using [employer] dictation software. Please allow for errors in datapower consultant while rare they do occur. Burke Grady FLOOR RENOVATOR rendered care for this patient independently, reviewed the findings and plan as documented in the note above. I did not physically speak with or examine the patient on this date. Objective - Vital Signs Vital signs: Vital Signs Temp 98.0 F 09/01/22 07:02 Pulse 75 09/01/22 07:02 Resp 15 09/01/22 07:02 BP 125/76 09/01/22 07:02 Pulse Ox 96 09/01/22 07:02 FiO2 Intake & Output 08/31/22 09/01/22 09/01/22 18:59 06:59 18:59 Intake Total 2301 100 Output Total 200 Balance 2101 100 Weight 87.8 kg Intake: IV 2301 Intake, IV Titration 100 Amount ceFAZolin 2 gm In Sodium 100 Chloride 0.9% 50 ml @ 100 mls/hr IVPB Q8HR [facility] Rx# :[id number] Output: Estimated Blood Loss 200 Other: # Voids 3 1
== END 2022-09-01 12:13 | disposition home or self-care (01) ==
LOC: OR 07:09 → 4SSUR 08:52
PROVIDERS: ADMIT Orthopaedic Surgery; ATTEND Orthopaedic Surgery
DX: M19.012 Primary osteoarthritis, left shoulder (principal); M75.102 Unspecified rotator cuff tear or rupture of left shoulder, not specified as traumatic; M25.712 Osteophyte, left shoulder; K21.9 Gastro-esophageal reflux disease without esophagitis; E78.5 Hyperlipidemia, unspecified; K57.90 Diverticulosis of intestine, part unspecified, without perforation or abscess without bleeding; M06.9 Rheumatoid arthritis, unspecified; H91.90 Unspecified hearing loss, unspecified ear; G56.03 Carpal tunnel syndrome, bilateral upper limbs; E53.8 Deficiency of other specified B group vitamins; M79.7 Fibromyalgia; B19.20 Unspecified viral hepatitis C without hepatic coma; F32.A Depression, unspecified; F41.9 Anxiety disorder, unspecified; Z79.899 Other long term (current) drug therapy; Z88.5 Allergy status to narcotic agent; Z88.6 Allergy status to analgesic agent; Z87.19 Personal history of other diseases of the digestive system; Z86.19 Personal history of other infectious and parasitic diseases; Z90.49 Acquired absence of other specified parts of digestive tract; Z98.891 History of uterine scar from previous surgery; Z96.611 Presence of right artificial shoulder joint; Z87.891 Personal history of nicotine dependence; Z97.3 Presence of spectacles and contact lenses; Z87.11 Personal history of peptic ulcer disease; Z98.890 Other specified postprocedural states; Z82.3 Family history of stroke; Z83.511 Family history of glaucoma; Z82.49 Family history of ischemic heart disease and other diseases of the circulatory system; Z80.42 Family history of malignant neoplasm of prostate
CPT/HCPCS: 64415; 76942; 88300; 73020; 23472; G0378 ×2; C1776; J2250; J0330; J1100; J0690 ×3; J2405; J3010; J1170 ×3; J2795; J2370; J2704; J2001

== ENCOUNTER → 2024-07-11 | Outpatient (CLI) | payer MEDICARE, OTHER ==
[2024-07-11 15:39] LABS: Basophils # (A) 0.09 X 10*3/uL (0.00-0.10); Eosinophils % (A) 4.7 %; HCT 40.5 % (37.2-46.3); HGB 13.1 g/dL (12.0-15.0); Lymphocytes # (A) 1.53 X 10*3/uL (0.90-5.00); Lymphocytes % (A) 17.8 %; MCH 29.6 pg (27.0-32.0); MCHC 32.3 g/dL (32.0-37.0); MCV 91.4 FL (80.0-97.0); Mean Platelet Volume 11.4 FL (9.5-12.2); Monocytes % (A) 8.1 %; NRBC Per 100 WBC 0 X 10*3/uL (0.00-0.01); Neutrophils # (A) 5.84 X 10*3/uL (1.80-7.70); Neutrophils % (A) 67.9 %; Platelet Count 281 X 10*3/uL (140-440); RBC 4.43 X 10*6/uL (4.10-5.20); RDW 14.4 % (11.5-14.5)
[2024-07-11 15:40] LABS: % Iron Saturation 19.41 (12.00-45.00); ALT 44 U/L (8-44); AST 50 U/L (13-35); Albumin 3.9 g/dL (3.8-4.9); Albumin/Globulin Ratio 1.34 Ratio (1.60-3.17); Alkaline Phosphatase 126 U/L (41-126); BUN/Creat Ratio 19.43 Ratio (12.00-20.00); Blood Urea Nitrogen 13.6 mg/dL (9.0-27.0); Calcium 9.5 mg/dL (8.7-10.3); Carbon Dioxide 25.5 mmol/L (21.6-31.8); Chloride 106 mmol/L (96-109); Chol/HDL Ratio 3.33 Ratio; Globulin 2.9 g/dL (1.6-3.3); Glucose 108 mg/dL (70-110); Iron 85 UG/DL (50-170); LDL Cholesterol,Calculated 63.9 mg/dL (0.0-131.0); Potassium 4.7 mmol/L (3.5-5.5); Sodium 142 mmol/L (135-145); Total Bilirubin 0.4 mg/dL (0.3-1.2); Total Iron Binding Capacity 438 UG/DL (228-460); Total Protein 6.8 g/dL (6.2-8.2)
== END | disposition home or self-care (01) ==
LOC: LABWHC1 09:07
PROVIDERS: ATTEND Internal Medicine
DX: Z00.00 Encounter for general adult medical examination without abnormal findings (principal); E53.8 Deficiency of other specified B group vitamins; M81.0 Age-related osteoporosis without current pathological fracture
CPT/HCPCS: 36415; 80053; 80061; 82306; 82607; 82728; 82746; 83540; 83550; 84443; 85025

== ENCOUNTER → 2024-07-24 | Outpatient (CLI) | payer MEDICARE, OTHER ==
--- NOTE | 2024-07-24 08:14 | US ---
EXAMINATION TYPE: US liver DATE OF EXAM: 07/24/2024 COMPARISON: NONE CLINICAL INDICATION: Female, 68 years old with history of R74.01 ELEVATED AST; Elevated AST TECHNIQUE: Grayscale and color Doppler imaging of the right upper quadrant was performed. FINDINGS: EXAM MEASUREMENTS: Liver Length: 15.3 cm Gallbladder Wall: .2 cm CBD: .5 cm Right Kidney: 10.9 x 3.4 x 4.5 cm BRAKE SPECIALIST NOTES: Pancreas: Obscured by bowel gas Liver: wnl Gallbladder: Stones visualized Evidence for sonographic Britt's sign: no CBD: wnl Right Kidney: No hydronephrosis or masses seen IMPRESSION: 1. No evidence for acute process. 2. Cholelithiasis. [facility], , 07/24/2024 8:11 AM
== END | disposition home or self-care (01) ==
LOC: RADUSWWP 07:25
PROVIDERS: ATTEND Internal Medicine
DX: K80.20 Calculus of gallbladder without cholecystitis without obstruction (principal); R74.01 Elevation of levels of liver transaminase levels
CPT/HCPCS: 76705

== ENCOUNTER 2024-08-22 10:48 | Day surgery (SDC) | payer MEDICARE, OTHER ==
[2024-08-18 11:22] VITALS: BMI 32.1
[~2024-08-22 10:48] MED LIST changes: -ACETAMINOPHEN TAB 500 MG TAB PO PRN; -GABAPENTIN 300 MG CAP PO PRN; -MELOXICAM 7.5 MG TAB PO PRN; -TRANEXAMIC ACID IN NACL,ISO-OS 1,000 MG in SALINE 1 100ML.BAG IVPB PRN; +fentaNYL (PF) 50 MCG/ML 2 ML AMP IV PRN
[2024-08-22] MEDS: LACTATED RINGERS 1,000 ML IV SCH (11:44)
[2024-08-22] MEDS: INDOCYANINE GREEN 25 MG VIAL IV PRN (11:54)
[2024-08-22] MEDS: ONDANSETRON 4 MG/2 ML VIAL IVP ONE ×2 (11:54→14:48)
[2024-08-22] MEDS: DEXAMETHASONE SOD PHOSPHATE 4 MG/ML 1 ML VIAL IV ONE (11:55)
[2024-08-22] MEDS ORDERED: MIDAZOLAM 2 MG/2 ML VIAL ONE (12:00)
[2024-08-22] MEDS ORDERED: ROCURONIUM 10 MG/ML (5 ML VIAL) IV ONE (12:00)
[2024-08-22] MEDS ORDERED: PROPOFOL 10 MG/ML 20 ML VIAL IV ONE (12:00)
[2024-08-22] MEDS ORDERED: KETAMINE HCL IN 0.9 % NACL 50 MG/5 ML SYRINGE ONE (12:00)
[2024-08-22] MEDS ORDERED: hydrALAZINE HCL 20 MG/ML 1 ML VIAL ONE (12:00)
[2024-08-22] MEDS ORDERED: GLYCOPYRROLATE 0.2 MG/ML 2 ML VIAL ONE (12:00)
[2024-08-22] MEDS: HEPARIN SODIUM,PORCINE 5,000 UNIT/ML 1 ML VIAL SQ PRN (12:00)
[2024-08-22] MEDS ORDERED: NEOSTIGMINE 1 MG/ML 10 ML VIAL ONE (12:00)
[2024-08-22] MEDS ORDERED: KETOROLAC 15 MG/ML 1 ML VIAL ONE (12:00)
[2024-08-22] MEDS ORDERED: HYDROmorphone (PF) 1 MG/ML ONE (12:00)
[2024-08-22] MEDS ORDERED: LABETALOL 5 MG/ML VIAL MDV ONE (12:00)
[2024-08-22] MEDS ORDERED: LIDOCAINE 1% INJ 10MG/ML (20 ML MDV) ONE (12:00)
[2024-08-22] MEDS ORDERED: SUCCINYLCHOLINE CHLORIDE 200 MG/10 ML VIAL IV ONE (12:00)
[2024-08-22] MEDS ORDERED: fentaNYL (PF) 50 MCG/ML 2 ML AMP ONE (12:00)
[2024-08-22] MEDS: IV FLUID CONTINUATION 1,000 ML IV ONE (12:01)
[2024-08-22] MEDS: ceFAZolin 2 GM in DEXTROSE 5% IN WATER 50 ML IVPB PRN (12:05)
[2024-08-22] MEDS: LIDOCAINE 1%-EPI 1:100,000 20 ML VIAL SQ ONE ×2 (12:19→13:34)
[2024-08-22] MEDS: LACTATED RINGERS 1,000 ML IV ONE (13:37)
[2024-08-22 14:06] VITALS: TEMP 96.8
[2024-08-22] MEDS: HYDROmorphone 0.5 MG/0.5 ML SYRINGE IVP ONE (14:49)
[2024-08-22 15:04] VITALS: RESP 16
[2024-08-22 16:31] VITALS: BP 165/73; PULSE 78
--- NOTE | 2024-08-22 22:30 | P.OP ---
Date of Procedure: 08/22/24 Preoperative Diagnosis: Symptomatic cholelithiasis Postoperative Diagnosis: Acute cholecystitis Procedure(s) Performed: Robotic cholecystectomy with lysis of adhesions Anesthesia: CARLOS Surgeon: Eugene Grier Estimated Blood Loss (ml): 50 Pathology: other (Gallbladder) Condition: stable Disposition: PACU Indications for Procedure: Acute cholecystitis Operative Findings: Acute cholecystitis Description of Procedure: Patient was brought to the operating suite where she was cleaned and draped in sterile fashion a timeout was performed and everyone agreed with the information recited next a 15 blade was used to make an incision in the left upper quadrant and a 5 mm Visiport was then used to gain access to the abdomen once the abdomen was insufflated 3 more 8 mm ports were placed and the 5 mm port was then exchanged for an 8 the robot was then docked the gallbladder was immediately identified and looked inflamed. There was a significant amount of adhesions identified and it was sometimes taken to lyse some of these adhesions the gallbladder was grasped cephalad and infundibulum retracted laterally and I started my dissection from lateral to medial careful identifying the cystic duct and cystic artery which was verified with IC-Green. Once skeletonized and obtaining the critical view of safety both structures were clipped and ligated using electrocautery and clips. The gallbladder was taken off of the gallblad rhonda fossa in a controlled manner placed in the Endo Catch bag and passed off to nursing. The left upper quadrant was closed with a Ky-Krystina device all instruments were removed of the patient's abdomen intact. A hemostatic timeout was performed and Ita powder was then placed in the gallbladder fossa the abdomen was then desufflated and the incisions were closed using 4-0 Vicryl suture in an interrupted fashion. The patient tolerated procedure well and was transported to PACU in stable condition
== END 2024-08-22 16:38 | disposition home or self-care (01) ==
LOC: OR 10:48
PROVIDERS: ATTEND Surgery
DX: K80.18 Calculus of gallbladder with other cholecystitis without obstruction (principal); K80.12 Calculus of gallbladder with acute and chronic cholecystitis without obstruction
CPT/HCPCS: 47562; S2900; 88304